=== PATIENT | female | born 1970 | race Two or more races ===

== ENCOUNTER 2018-08-01 08:40 | Emergency (ER) | payer OTHER ==
[~2018-08-01] VITALS: Ht 154.9 cm; Wt 83.0 kg
[2018-08-01] MEDS ORDERED: VITAMIN D-32000 UNIT (09:11)
[2018-08-01] MEDS ORDERED: PRIMROSE (09:12)
[2018-08-01] MEDS ORDERED: ALBUTEROL0.63 MG/3 (09:12)
== END 2018-08-01 11:23 | disposition home or self-care (01) ==
LOC: ER 08:40
DX: J11.1 Influenza due to unidentified influenza virus with other respiratory manifestations (principal); J40 Bronchitis, not specified as acute or chronic

== ENCOUNTER 2023-05-26 11:54 | Emergency (ER) | payer OTHER ==
[~2023-05-26] VITALS: Ht 157.5 cm; Wt 69.4 kg
[~2023-05-26 11:54] MED LIST: ALBUTEROL0.63 MG/3; PRIMROSE; VITAMIN D-32000 UNIT
[2023-05-26 16:20] LABS: HEMATOCRIT 40.4 % (36.0-45.00); HEMOGLOBIN 13.2 g/dL (12.0-15.00); MEAN CELL VOLUME 88.7 fL (80.00-100.00); MEAN CORPUSCULAR HEMOGLOBIN 29.1 pg (27.00-32.0); MEAN CORPUSCULAR HGB CONC 32.8 g/dl (32.0-36.0); PLATELET COUNT 326 K/uL (150-450); RED BLOOD COUNT 4.55 M/uL (4.00-6.00)
[2023-05-26] MEDS ORDERED: IPRATROPIU0.2 MG/1 M IH ×2 (17:47→17:51)
[2023-05-26] MEDS ORDERED: SINGULAIR10 MG PO ×2 (17:49→17:51)
[2023-05-26] MEDS ORDERED: MEDROLPACK PO (17:51)
== END 2023-05-26 18:07 | disposition home or self-care (01) ==
LOC: ER 11:54
PROVIDERS: Nurse Practitioner Family
DX: R53.81 Other malaise (principal); J45.909 Unspecified asthma, uncomplicated; Z20.822 Contact with and (suspected) exposure to COVID-19; Z88.6 Allergy status to analgesic agent

== ENCOUNTER 2023-06-28 09:12 | Emergency (ER) | payer OTHER ==
[~2023-06-28] VITALS: Ht 154.9 cm; Wt 69.4 kg
[~2023-06-28 09:12] MED LIST changes: +IPRATROPIU0.2 MG/1 M IH; +MEDROLPACK PO; +SINGULAIR10 MG PO
[2023-06-28 12:35] LABS: HEMATOCRIT 38.6 % (36.0-45.00); HEMOGLOBIN 12.9 g/dL (12.0-15.00); MEAN CORPUSCULAR HEMOGLOBIN 29.7 pg (27.00-32.0); MEAN CORPUSCULAR HGB CONC 33.3 g/dl (32.0-36.0); PLATELET COUNT 255 K/uL (150-450); RED BLOOD COUNT 4.34 M/uL (4.00-6.00); RED CELL DISTRIBUTION WIDTH 13.6 % (11.5-14.5)
== END 2023-06-28 14:51 | disposition home or self-care (01) ==
LOC: ER 09:12
PROVIDERS: General Practice
DX: J10.1 Influenza due to other identified influenza virus with other respiratory manifestations (principal); B34.9 Viral infection, unspecified; Z88.8 Allergy status to other drugs, medicaments and biological substances; Z87.09 Personal history of other diseases of the respiratory system; Z20.822 Contact with and (suspected) exposure to COVID-19